=== PATIENT | female | born 1940 | race Caucasian/White ===

== ENCOUNTER 2019-06-15 15:30 | Emergency (ER) | payer MEDICARE, OTHER, MEDICAID ==
[2019-06-15] MEDS: ONDANSETRON (ODT) 4 MG TAB ODT (17:02)
[2019-06-15] MEDS: HYDROCODONE/APAP (5/325) TAB PO (17:03)
== END 2019-06-15 17:46 | disposition home or self-care (01) ==
LOC: E/R 15:30
DX: S09.90XA Unspecified injury of head, initial encounter (principal); S90.31XA Contusion of right foot, initial encounter; S40.011A Contusion of right shoulder, initial encounter; I10 Essential (primary) hypertension; W01.0XXA Fall on same level from slipping, tripping and stumbling without subsequent striking against object, initial encounter; Y92.9 Unspecified place or not applicable; Z79.84 Long term (current) use of oral hypoglycemic drugs
CPT/HCPCS: 70450; 72170; 73030-RT; 73502; 73510; 73630; 99284-25

== ENCOUNTER 2019-06-28 15:50 | Emergency (ER) | payer SELFPAY, OTHER, MEDICARE | END 2019-06-28 16:40 | disposition left against medical advice (07) | LOC: E/R 15:50 | DX: Z53.21 Procedure and treatment not carried out due to patient leaving prior to being seen by health care provider (principal) ==